=== PATIENT | female | born 1995 | race Hispanic/Latino ===

== ENCOUNTER 2019-01-24 13:11 | Emergency (ER) | payer SELFPAY ==
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
[2019-01-24] MEDS ORDERED: FENTANYL CITR 100 MCG/2 ML ONE (15:14)
[2019-01-24 15:21] LABS: Urine Blood NEGATIVE (NEG); Urine Glucose NEGATIVE (NEG); Urine Protein NEGATIVE (NEG); Urine Specific Gravity 1.025 (1.005-1.030)
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
[2019-01-24 15:36] LABS: Urine RBC NONE SEEN /HPF (NONE SEEN)
[2019-01-24 15:37] LABS: Urine Bacteria 20-50 /HPF (<20); Urine Culture Reflex Order REFLEXED; Urine Mucus 2+ /HPF (NONE SEEN)
== END 2019-01-24 15:45 | disposition home or self-care (01) ==
LOC: ER 13:11
DX: S20.219A Contusion of unspecified front wall of thorax, initial encounter (principal); V43.52XA Car driver injured in collision with other type car in traffic accident, initial encounter; Y93.89 Activity, other specified; Y92.410 Unspecified street and highway as the place of occurrence of the external cause
CPT/HCPCS: 70450; 71046; 72125; 81003; 81015; 81025; 87086; 87088; 96372; 99284; J3010